=== PATIENT | female | born 1935 | race Caucasian/White ===

== ENCOUNTER 2021-05-28 16:22 | Inpatient (IN) | payer MEDICARE, OTHER ==
[~2021-05-28] VITALS: Ht 149.9 cm; Wt 49.9 kg
[2021-05-28 18:52] LABS: BASOPHIL 0.3 % (0-2); EOSINOPHIL 0.7 % (0-7); HGB 12.4 g/dl (12.5-16.0); LYMPHOCYTE 10.5 % (15-48); MCH 31.5 pg (25.0-31.0); MCHC 32.6 g/dL (32.0-36.0); MCV 96.4 fL (78.0-100.0); MONOCYTE 5.4 % (0-12); NEUTROPHIL 82.5 % (41-80); NRBC 0; PLT 212 K/uL (150-400); RBC 3.94 M/uL (4.20-5.40); RDW 12.4 % (11.5-14.0); WBC 12.1 K/uL (4.0-10.5)
[2021-05-28 19:15] LABS: BUN/CREAT RATIO (CALC) 27.9 RATIO; CREATININE 0.61 mg/dL (0.51-0.95); POTASSIUM 3.7 mmol/L (3.5-5.1)
[2021-05-28 20:52] LABS: CORONAVIRUS 2019 SARS-COV-2 NEGATIVE (NEGATIVE); INFLUENZA A NAA NEGATIVE (NEGATIVE)
[2021-05-28 23:10] LABS: BILIRUBIN NEGATIVE (NEGATIVE); BLOOD TRACE-INTACT Ery/uL (NEGATIVE); CLARITY CLEAR (CLEAR); COLOR YELLOW (YELLOW); GLUCOSE (U) NORMAL (NORMAL); LEUKOCYTES NEGATIVE Leu/uL (NEGATIVE); NITRITE NEGATIVE (NEGATIVE); PROTEIN TRACE (LOW) mg/dL (NEGATIVE); SPECIFIC GRAVITY 1.025 (1.001-1.030); UROBILINOGEN 0.2 mg/dL (0.2-1.0); pH 6.5 (5.0-9.0)
[2021-05-28 23:13] LABS: INR 0.96 (0.9-1.2); PROTHROMBIN TIME 12.2 SECONDS (11.8-13.4)
[2021-05-28 23:14] LABS: PTT 25.9 SECONDS (24.4-34.7)
[2021-05-28 23:37] LABS: BACTERIA TRACE; URINARY WBC RARE
[2021-05-28 23:38] LABS: SQUAMOUS EPITHELIAL CELLS RARE
[2021-05-29] MEDS ORDERED: CLOPIDOGREL75 MG PO (00:16)
[2021-05-29] MEDS ORDERED: MYRBETRIQ25 MG PO (00:17)
[2021-05-29] MEDS ORDERED: HYDROXYCHLOROQ200 MG PO (00:18)
[2021-05-29] MEDS ORDERED: DULOXETINE HCL30 MG PO (00:18)
[2021-05-29] MEDS ORDERED: COZAAR100 MG PO (00:19)
[2021-05-29] MEDS ORDERED: PANTOPRAZOLE SO20 MG PO (00:19)
[2021-05-29] MEDS ORDERED: ASPIRIN EC81 MG PO (00:30)
[2021-05-29] MEDS ORDERED: ACETAMINOPHEN500 M1 PO (00:31)
[2021-05-29] MEDS ORDERED: CALCIUM + D3 E1 EACH PO (00:32)
[2021-05-29 05:53] LABS: BASOPHIL 0.2 % (0-2); EOSINOPHIL 0 % (0-7); HCT 33.2 % (37.0-47.0); LYMPHOCYTE 7.3 % (15-48); MCH 30.9 pg (25.0-31.0); MCHC 33.1 g/dL (32.0-36.0); MCV 93.3 fL (78.0-100.0); MONOCYTE 8.6 % (0-12); MPV 11.1 fL (6.0-9.5); NEUTROPHIL 83.4 % (41-80); NRBC 0; PLT 185 K/uL (150-400); RBC 3.56 M/uL (4.20-5.40); RDW 12.4 % (11.5-14.0); WBC 11.8 K/uL (4.0-10.5)
[2021-05-29 06:34] LABS: BUN/CREAT RATIO (CALC) 30.4 RATIO; CREATININE 0.46 mg/dL (0.51-0.95); POTASSIUM 3.6 mmol/L (3.5-5.1)
[2021-05-31 06:31] LABS: BASOPHIL 0.1 % (0-2); EOSINOPHIL 0 % (0-7); HCT 23.9 % (37.0-47.0); HGB 8.2 g/dl (12.5-16.0); MCH 31.5 pg (25.0-31.0); MCHC 34.3 g/dL (32.0-36.0); MCV 91.9 fL (78.0-100.0); MONOCYTE 9.4 % (0-12); MPV 11.5 fL (6.0-9.5); NEUTROPHIL 84.9 % (41-80); NRBC 0; PLT 141 K/uL (150-400); RDW 12.1 % (11.5-14.0); WBC 15.3 K/uL (4.0-10.5)
[2021-05-31 06:56] LABS: BUN/CREAT RATIO (CALC) 37.7 RATIO; CREATININE 0.53 mg/dL (0.51-0.95)
[2021-06-01 06:59] LABS: BASOPHIL 0.2 % (0-2); EOSINOPHIL 0.9 % (0-7); HCT 17.6 % (37.0-47.0); LYMPHOCYTE 7.9 % (15-48); MCH 31.4 pg (25.0-31.0); MCHC 34.1 g/dL (32.0-36.0); MCV 92.1 fL (78.0-100.0); MONOCYTE 10.9 % (0-12); MPV 11.7 fL (6.0-9.5); NEUTROPHIL 79.2 % (41-80); NRBC 0; PLT 124 K/uL (150-400); RBC 1.91 M/uL (4.20-5.40); RDW 12.1 % (11.5-14.0); WBC 11.5 K/uL (4.0-10.5)
[2021-06-02 04:09] LABS: BASOPHIL 0.2 % (0-2); EOSINOPHIL 1.9 % (0-7); HCT 28.2 % (37.0-47.0); LYMPHOCYTE 7.3 % (15-48); MCH 30.1 pg (25.0-31.0); MCHC 34.8 g/dL (32.0-36.0); MONOCYTE 11.9 % (0-12); MPV 11.2 fL (6.0-9.5); NEUTROPHIL 77.6 % (41-80); NRBC 0; PLT 141 K/uL (150-400); RBC 3.26 M/uL (4.20-5.40); RDW 13.6 % (11.5-14.0)
[2021-06-02 04:12] LABS: HGB 9.8 g/dl (12.5-16.0); MCV 86.5 fL (78.0-100.0)
[2021-06-02 04:29] LABS: BUN/CREAT RATIO (CALC) 25.6 RATIO; CREATININE 0.39 mg/dL (0.51-0.95); POTASSIUM 3.1 mmol/L (3.5-5.1)
[2021-06-02] MEDS ORDERED: LOPRESSOR25 MG PO (09:28)
== END 2021-06-02 12:34 | DRG 481 ==
LOC: FER 16:22 → FMS 20:40
PROVIDERS: Allergy & Immunology Allergy; Nurse Practitioner; Nurse Practitioner Family; Orthopaedic Surgery; ADMIT Internal Medicine
PROC: 0QS604Z Reposition Right Upper Femur with Internal Fixation Device, Open Approach (ICD-10-PCS; 2021-05-30)
PROC: 30233N1 Transfusion of Nonautologous Red Blood Cells into Peripheral Vein, Percutaneous Approach (ICD-10-PCS; principal; 2021-06-01)
DX: S72.141A Displaced intertrochanteric fracture of right femur, initial encounter for closed fracture (principal); S42.254A Nondisplaced fracture of greater tuberosity of right humerus, initial encounter for closed fracture; I69.351 Hemiplegia and hemiparesis following cerebral infarction affecting right dominant side; D62 Acute posthemorrhagic anemia; M81.0 Age-related osteoporosis without current pathological fracture; M06.9 Rheumatoid arthritis, unspecified; I10 Essential (primary) hypertension; N32.81 Overactive bladder; Z20.822 Contact with and (suspected) exposure to COVID-19; Z51.5 Encounter for palliative care; E87.6 Hypokalemia; R00.0 Tachycardia, unspecified; Z90.89 Acquired absence of other organs; Z90.49 Acquired absence of other specified parts of digestive tract; Z88.5 Allergy status to narcotic agent; Z82.3 Family history of stroke; Z80.1 Family history of malignant neoplasm of trachea, bronchus and lung; Z98.41 Cataract extraction status, right eye; Z98.42 Cataract extraction status, left eye; Z79.82 Long term (current) use of aspirin; Z79.02 Long term (current) use of antithrombotics/antiplatelets; W18.30XA Fall on same level, unspecified, initial encounter; Y99.2 Volunteer activity
CPT/HCPCS: 36415; 36430; 71045; 73060; 73501; 73502; 73552; 73560; 76000; 80048; 81001; 85025; 85610; 85730; 86850; 86900; 86901; 86922; 93005; 94010; 94760; 96374; 97162; 97166; 97530; 97530-GP; 97535; C1713; J0697; J1100; J1650; J2270; J2370; J2405; J2704; J3010; J7120; P9016; U0002

== ENCOUNTER 2021-07-01 21:27 | Emergency (ER) | payer MEDICARE, OTHER ==
[~2021-07-01 21:27] MED LIST: ACETAMINOPHEN500 M1 PO; ASPIRIN EC81 MG PO; CALCIUM + D3 E1 EACH PO; CLOPIDOGREL75 MG PO; COZAAR100 MG PO; DULOXETINE HCL30 MG PO; HYDROXYCHLOROQ200 MG PO; LOPRESSOR25 MG PO; MYRBETRIQ25 MG PO; PANTOPRAZOLE SO20 MG PO
== END 2021-07-01 23:05 | disposition home or self-care (01) ==
LOC: FER 21:27
DX: S01.01XA Laceration without foreign body of scalp, initial encounter (principal); I10 Essential (primary) hypertension; Z88.5 Allergy status to narcotic agent; Z86.73 Personal history of transient ischemic attack (TIA), and cerebral infarction without residual deficits; W01.190A Fall on same level from slipping, tripping and stumbling with subsequent striking against furniture, initial encounter; Y92.129 Unspecified place in nursing home as the place of occurrence of the external cause
CPT/HCPCS: 70450

== ENCOUNTER 2021-08-04 10:02 | Emergency (ER) | payer MEDICARE, OTHER ==
[2021-08-04 11:34] LABS: BASOPHIL 0.4 % (0-2); EOSINOPHIL 0.2 % (0-7); HCT 33.1 % (37.0-47.0); LYMPHOCYTE 5.6 % (15-48); MCH 30.9 pg (25.0-31.0); MCHC 33.2 g/dL (32.0-36.0); MONOCYTE 8.5 % (0-12); MPV 10.9 fL (6.0-9.5); NEUTROPHIL 84.7 % (41-80); NRBC 0; PLT 224 K/uL (150-400); RBC 3.56 M/uL (4.20-5.40); RDW 14.1 % (11.5-14.0)
[2021-08-04 11:46] LABS: ALBUMIN 3.5 g/dL (3.4-5.0); BILIRUBIN - TOTAL 0.4 mg/dL (0.2-1.0); BUN/CREAT RATIO (CALC) 28.8 RATIO; CREATININE 0.66 mg/dL (0.51-0.95); POTASSIUM 4.2 mmol/L (3.5-5.1); TOTAL PROTEIN 7.5 g/dL (6.4-8.2)
[2021-08-04 12:26] LABS: BILIRUBIN NEGATIVE (NEGATIVE); BLOOD NEGATIVE Ery/uL (NEGATIVE); CLARITY CLEAR (CLEAR); COLOR YELLOW (YELLOW); GLUCOSE (U) NORMAL (NORMAL); LEUKOCYTES NEGATIVE Leu/uL (NEGATIVE); NITRITE NEGATIVE (NEGATIVE); PROTEIN NEGATIVE (NEGATIVE); UROBILINOGEN 0.2 mg/dL (0.2-1.0)
== END 2021-08-04 14:30 | disposition admitted as inpatient to this hospital (09) ==
LOC: FER 10:02
PROVIDERS: Emergency Medicine
DX: S72.301A Unspecified fracture of shaft of right femur, initial encounter for closed fracture (principal); Z88.5 Allergy status to narcotic agent; Z20.822 Contact with and (suspected) exposure to COVID-19; W01.198A Fall on same level from slipping, tripping and stumbling with subsequent striking against other object, initial encounter
CPT/HCPCS: 36415; 70450; 73502; 73560; 80053; 81003; 85025; 96374; 96375; J1170; J2405; U0002